=== PATIENT | female | born 1935 | race Caucasian/White ===

== ENCOUNTER 2016-06-25 18:38 | Emergency (ER) | payer OTHER, BC ==
--- NOTE | 2016-06-25 18:40 | PDOC ---
Attending Attestation - Resident Resident Name: Jasper,Jenny - ED Attending Attestation I have performed the following: I have examined & evaluated the patient, The case was reviewed & discussed with the resident, I agree w/resident's findings & plan, Exceptions are as noted - HPI HPI: 06/25/16 18:39 The patient is an 81-year-old female, who presents to the emergency department status mechanical fall with occipital head trauma and no loss of consciousness. She denies headache, nausea/vomiting, focal weakness/paresthesias. She has no neck pain. - Physicial Exam PE: 06/25/16 18:40 The patient is well-appearing and in no acute distress Occiptal scalp hematoma measuring 5x6cm Vitals noted C-spine is nontender - Medical Decision Making 06/25/16 18:[address] Case discussed in detail with oncoming Emergency Physician including history, physical exam and ancillary studies. Oncoming Emergency Physician has assumed care for the patient and will complete the evaluation and treatment. 06/25/16 18:42 Discharge Disposition - Diagnosis Closed head injury
--- NOTE | 2016-06-25 18:43 | PDOC ---
History of Present Illness - General Chief Complaint: Laceration Stated Complaint: fell,hit back of head Time Seen by Provider: 06/25/16 18:39 - History of Present Illness Initial Comments: 06/25/16 18:45 CHIEF COMPLAINT: Head trauma s/p mechanical fall PCP: Marianne Garza HISTORY OF PRESENT ILLNESS: 81 year old female presented to the ED after she hit her head s/p mechanical fall this evening. A/c to the patient, she was about to sit in the passenger seat, but unfortunately she buckled her right knee and fell backwards hitting her head on the ground. Denies any LOC, dizziness, vertigo, near syncope, blurring of vision nausea, vomiting, headache pre and post fall. She was able to call for help after she fell. Denies any chest pain, palpitations, fever, chills, urinary symptoms. Patient mentions she is not on any blood thinners and she got the tetanus shot less than 5 years ago. Recent Travel: None PAST MEDICAL HISTORY: Hypertension, Hyperlipidemia, Diverticulitis PAST SURGICAL HISTORY: Laparoscopic surgery for Diverticulitis yesterday 2016 Social History: Smoking: Denies Alcohol: Denies Drugs: Denies Family History: Unknown Allergies NKDA 06/25/16 19:24 Past History - Past Medical History Allergies/Adverse Reactions: Allergies Allergy/AdvReac Type Severity Reaction Status Date / Time No Known Allergies Allergy Verified 06/25/16 18:39 Home Medications: Ambulatory Orders Diltiazem Cd [Cardizem Cd -] 240 mg PO DAILY 01/17/16 Duloxetine HCl 60 mg PO DAILY 01/17/16 Folic Acid - 1 mg PO DAILY 01/17/16 Gabapentin 600 mg PO HS 01/17/16 Gabapentin [Neurontin] 400 mg PO DAILY 01/17/16 Hydrochlorothiazide [Hctz -] 25 mg PO DAILY 01/17/16 Metoprolol Tartrate 50 mg PO DAILY 01/17/16 Potassium Chloride 20 meq PO DAILY 01/17/16 Simvastatin [Zocor -] 20 mg PO HS 01/17/16 Diazepam [Valium] 5 mg PO Q8H 01/18/16 Paroxetine HCl 30 mg PO DAILY 01/18/16 HTN: Yes Hypercholesterolemia: Yes Psychiatric Problems: Yes (ANXIETY/DEPRESSION) - Psycho/Social/Smoking Cessation Hx Anxiety: No Suicidal Ideation: No Smoking History: Never smoked Have you smoked in the past 12 months: No Hx Alcohol Use: Yes (RARE) Drug/Substance Use Hx: No Substance Use Type: Alcohol Hx Substance Use Treatment: No Review of Systems - Review of Systems Able to Perform ROS?: Yes Comments:: 06/25/16 18:53 REVIEW OF SYSTEMS CONSTITUTIONAL: Absent: fever, chills, diaphoresis, generalized weakness, malaise, loss of appetite, weight change HEENT: Absent: rhinorrhea, nasal congestion, throat pain, throat swelling, difficulty swallowing, mouth swelling, ear pain, eye pain, visual changes CARDIOVASCULAR: Absent: chest pain, syncope, palpitations, irregular heart rate , lightheadedness, peripheral edema RESPIRATORY: Absent: cough, shortness of breath, dyspnea with exertion, orthopnea, wheezing, stridor, hemoptysis GASTROINTESTINAL: Nausea, vomiting, diarrhea that began last night around 7pm. Also complaining of LLQ pain. Absent: abdominal distension, constipation, melena , hematochezia GENITOURINARY: Absent: dysuria, frequency, urgency, hesitancy, hematuria, flank pain, genital pain MUSCULOSKELETAL: Absent: myalgia, arthralgia, joint swelling, back pain, neck pain SKIN: Absent: rash, itching, pallor HEMATOLOGIC/IMMUNOLOGIC: Absent: easy bleeding, easy bruising, lymphadenopathy, frequent infections ENDOCRINE:Absent: unexplained weight gain, unexplained weight loss, heat intolerance, cold intolerance NEUROLOGIC: Present: Head trauma, no headache or any other symptoms Absent: headache, focal weakness or paresthesias, dizziness, unsteady gait, seizure, mental status changes, bladder or bowel incontinence PSYCHIATRIC: Absent: anxiety, depression, suicidal or homicidal ideation, hallucinations. Is the patient limited Dominican proficient: No *Physical Exam - Physical Exam Comments: 06/25/16 18:55 GENERAL: Awake, alert, and fully oriented, in no acute distress. HEAD: Head trauma +, occipital hematoma approximately 5 x 6cm, no active bleeding, non tender, non fluctuant. EYES: Pupils equal, round and reactive to light, extraocular movements intact, sclera anicteric, conjunctiva clear. No lid lag. EARS, NOSE, THROAT: Ears normal, nares patent, oropharynx clear without exudates. Moist mucous membranes. NECK: Normal range of motion, supple without lymphadenopathy, or masses. LUNGS: Breath sounds equal, clear to auscultation bilaterally. No wheezes, and no crackles. No accessory muscle use. HEART: Regular rate and rhythm, normal S1 and S2 without murmur, rub or gallop. ABDOMEN: Soft, surgical scar phillips on the abdomen, no signs of infection in the scar not distended, normoactive bowel sounds, no masses. No hepatomegaly or splenomegaly. MUSCULOSKELETAL: Normal range of motion at all joints. No bony deformities or tenderness. No CVA tenderness. UPPER EXTREMITIES: 2+ pulses, warm, well-perfused. No cyanosis. No clubbing. Cap refill <2 seconds. No peripheral edema. LOWER EXTREMITIES: 2+ pulses, warm, well-perfused. No calf tenderness. No peripheral edema. NEUROLOGICAL: Cranial nerves II-XII intact. Normal speech. Gait not observed. PSYCHIATRIC: Cooperative. Good eye contact. Appropriate mood and affect. SKIN: Dry skin throughout with scratches on b/l lower extremities. ED Treatment Course - LABORATORY CBC & Chemistry Diagram: 06/25/16 19:05 06/25/16 19:05 Medical Decision Making - Medical Decision Making 06/25/16 18:45 Patient seen and examined at bedside. Vitals, unremarkable. Patient looks comfortable, but bit anxious about the head trauma, wants to be addressed immediately. Physical examination: Head trauma +, occipital hematoma approximately 5 x 6cm, no active bleeding, non tender, non fluctuant. Will order CBC, CMP, Coags, Lactic acid, magnesium, phosphorus, CXR, CT head, cardiac profile. 06/25/2016 18:20 Patient reassessed. Oriented to time, place and person. Spoke with patients customer care manager at bedside, she has early onset of dementia. She and her has been taking care of the patient 21/11 since 4 years. Will sign out to Dr. Bueno. Illness, Investigation and plan of care explained to the patient and the customer care manager sun. They verbalized understanding. Case seen and discussed with Dr. Bueno and Dr. Ro. *DC/Admit/Observation/Transfer Diagnosis at time of Disposition: Closed head injury
[2016-06-25 19:05] VITALS: TEMP 98.1; BMI 30.9
[2016-06-25 19:29] LABS: BASOPHIL 0.6 % (0-2.0); EOSINOPHIL 0.1 % (0-4.5); MCH 30.3 pg (25.7-33.7); MCHC 33.9 g/dl (32.0-36.0); MEAN CELL VOLUME 89.3 fl (80-96); MEAN PLT VOLUME 8.4 fl (7.5-11.1); NEUTROPHILS 78.9 % (42.8-82.8); PLATELET COUNT 332 K/MM3 (134-434); RDW 14.3 % (11.6-15.6); WHITE BLOOD COUNT 14.5 K/mm3 (4.0-10.0)
[2016-06-25 19:34] LABS: ACTIVATED PTT 23.1 SECONDS (24.0-38.9)
[2016-06-25 19:38] LABS: ALBUMIN 3.7 g/dl (3.5-5.0); ALK PHOS 53 U/L (32-92); ANION GAP 9 (8-16); CALCIUM 9.1 mg/dl (8.4-10.2); CO2 30 mmol/L (22-28); CPK(DFH) 76 IU/L (26-140); CREATININE 0.7 mg/dl (0.6-1.3); GLUCOSE,RANDOM 124 mg/dl (74-106); INR 1.03 (0.82-1.09); MAGNESIUM 1.8 mg/dL (1.8-2.4); PHOSPHOROUS 2.8 mg/dl (2.5-4.6); PROTHROMBIN TIME (PATIENT) 11.5 SEC (10.2-13.0); SGOT/AST 24 U/L (10-42); SGPT/ALT 43 U/L (10-40); TOT PROT 6.1 g/dl (6.4-8.3)
--- NOTE | 2016-06-25 19:40 | PDOC ---
*Physical Exam - Vital Signs Last Vital Signs Temp Pulse Resp BP Pulse Ox 98.1 F 98 H 20 128/64 98 06/25/16 18:39 06/25/16 18:39 06/25/16 18:39 06/25/16 18:39 06/25/16 18:39 <Chrissie West - Last Filed: 06/25/16 20:38> - Vital Signs Last Vital Signs Temp Pulse Resp BP Pulse Ox 98.1 F 98 H 20 128/64 98 06/25/16 18:39 06/25/16 18:39 06/25/16 18:39 06/25/16 18:39 06/25/16 18:39 <Loco Givens I - Last Filed: 06/25/16 20:54> Heart Score/ECG Review - ECG Intrepretation Comment:: 06/25/16 19:41 ECG obtained at 19:17 Sinus bradycardia at 58 bpm Incomplete left bundle branch block ECG unchanged from prior study on 01/19/2016 <Chrissie West - Last Filed: 06/25/16 20:38> ED Treatment Course - LABORATORY CBC & Chemistry Diagram: 06/25/16 19:05 06/25/16 19:05 - ADDITIONAL ORDERS Additional order review: Laboratory Results 06/25/16 06/25/16 06/25/16 19:05 19:05 19:05 INR Cancelled 1.03 PTT (Actin FS) 23.1 L Sodium Potassium Chloride Carbon Dioxide Anion Gap BUN Creatinine Creat Clearance w eGFR Random Glucose Calcium Phosphorus Magnesium AST ALT Alkaline Phosphatase Creatine Kinase 76 Total Protein Albumin 06/25/16 19:05 INR PTT (Actin FS) Sodium 138 Potassium 3.7 Chloride 99 Carbon Dioxide 30 H Anion Gap 9 BUN 17 D Creatinine 0.7 D Creat Clearance w eGFR > 60 Random Glucose 124 H D Calcium 9.1 Phosphorus 2.8 Magnesium 1.8 AST 24 D ALT 43 H Alkaline Phosphatase 53 D Creatine Kinase Total Protein 6.1 L Albumin 3.7 06/25/16 19:05 RBC 4.36 MCV 89.3 MCHC 33.9 RDW 14.3 MPV 8.4 Neutrophils % 78.9 D Lymphocytes % 12.4 D Monocytes % 8.0 Eosinophils % 0.1 D Basophils % 0.6 - RADIOLOGY Radiograph Interpretation: 06/25/16 20:39 EXAM: CT of the cervical spine without contrast Extensive degenerative changes. No acute osseous abnormality Read by: Efren Johnson MD EXAM: CT of the brain without contrast IMPRESSION: Findings of chronic parenchymal changes of the brain and a subcutaneous tunnel posteriorly on the right side Read by: Efren Johnson MD <Chrissie West - Last Filed: 06/25/16 20:38> - LABORATORY CBC & Chemistry Diagram: 06/25/16 19:05 06/25/16 19:05 - ADDITIONAL ORDERS Additional order review: Laboratory Results 06/25/16 06/25/16 19:05 19:05 INR Cancelled PTT (Actin FS) 23.1 L 06/25/16 19:05 RBC 4.36 MCV 89.3 MCHC 33.9 RDW 14.3 MPV 8.4 Neutrophils % 78.9 D Lymphocytes % 12.4 D Monocytes % 8.0 Eosinophils % 0.1 D Basophils % 0.6 - RADIOLOGY Radiology Studies Ordered: Category Date Time Status CERVICAL SPINE CT W/O CONTR [CT] Stat CT Scan 06/25/16 19:28 Ordered <Loco Givens I - Last Filed: 06/25/16 20:54> Progress Note - Progress Note Progress Note: This is a 81-year-old female who was initially evaluated by the internal medicine resident being supervised by Dr. Ro. Care of this patient was transferred to hi at 7 PM. Patient has a workup pending for altered mental status. As per patient's caregiver she is early onset dementia but her behavior this evening was not her baseline. So she is undergoing a workup for fall and there is a questionable history of whether or not she is at her baseline mental status-petersen.. Patient has CAT scan pending as well as lab work. 20:45 CT scan Business Office Associate: ([email or web address]) Begin of Report Content Referring Physician: Loco Givens Patient Name: Hailey Johnson THIS IS A PRELIMINARYREPORT FROM IMAGING COMMUNICATIONS SCIENT[facility] DATE OF SERVICE: 2016-06-25 19:28:59.0 IMAGES: [id number] EXAM: CT of the cervical spine without contrast HISTORY:Trauma... COMPARISON: None. FINDINGS:Serial transaxial images of the cervical spine are available without subarachnoid contrast agent. Sagittal and coronal reformatted imaging is also available. There is focal reversal of normal curvature centered at C4-C5. Otherwise alignment is within normal limits except for 1 mm anterior subluxation of C3 upon C4 that is most likely degenerative in nature. There are degenerative changes at the C1-C2 articulation. No acute osseous abnormality is seen however there are arthritic changes of the facet joints at multiple levels. Evaluation for disc herniation or significant disc bulge is limited without subarachnoid contrast agent. The paraspinal soft tissues are grossly unremarkable. There is disc space narrowing at C4-C5 and C5-C6 and C6- C7 with spondylosis anteriorly and posteriorly at these levels IMPRESSION: Extensive degenerative changes. No acute osseous abnormality THIS DOCUMENT HAS BEEN ELECTRONICALLY SIGNED Efren Johnson MD 06/25/2016 20:24 EST Marie. Please call Imaging Senior Trial Attorney [phone] with questions. Referring Physician: Loco iGvens Patient Name: Hailey Johnson THIS IS A PRELIMINARYREPORT FROM [facility]UNICATIONS [facility]ENT[facility] Referring Physician: Chencho Ro Patient Name: Hailey Johnson THIS IS A PRELIMINARYREPORT FROM [facility] COMMUNICATION[facility] SCIENT[facility] DATE OF SERVICE: 2016-06-25 19:31:18.0 IMAGES: 77 EXAM: CT of the brain without contrast HISTORY:Trauma COMPARISON: None. FINDINGS:Serial transaxial images of the brain are available without intravenous contrast agent demonstrating mild generalized cortical atrophy. There is associated mild ventricular prominence. There is no midline shift or mass- effect or acute hemorrhage. No abnormal fluid collections are seen. There is a subcutaneous soft tissue hematoma overlying the calvarium posteriorly on the right side measuring approximately 3.8 cm x 1.0 cm. The mastoid air cells are well aerated and the calvarium appears intact. IMPRESSION: Findings of chronic parenchymal changes of the brain and a subcutaneous tunnel posteriorly on the right side THIS DOCUMENT HAS BEEN ELECTRONICALLY SIGNED Efren Johnson MD 06/25/2016 20:22 EST Marie. Please call Imaging Senior Trial Attorney [phone] with questions. End of Report Content Assessment and plan: Patient's workup reveals a hematoma on her head where she fell and hit her head. The CAT scan of her head shows a soft tissue hematoma otherwise no acute parenchymal changes. The CAT scan of her cervical spine shows degenerative changes no acute pathology. She does have a mildly elevated white count but no left shift which is most likely secondary to her being one day postop. Patient does have dementia and is in the early stages of it. In discussion with her caregiver patient does appear to be at her baseline mental status. Given the fact that she was recently hospitalized and had surgery it is not surprising that she may have some mild increase in confusion. In discussion with patient she was oriented 3 here in the emergency room. Patient will be discharged home with her caregiver. <Loco Givens I - Last Filed: 06/25/16 20:54> *DC/Admit/Observation/Transfer - Attestations Scribe Attestion: 06/25/16 19:42 Documentation prepared by Chrissie West, acting as medical doctor nuclear medicine for Loco Givens MD. <Chrissie West - Last Filed: 06/25/16 20:38> <Loco Givens I - Last Filed: 06/25/16 20:54> Diagnosis at time of Disposition: Closed head injury - Discharge Dispostion Disposition: HOME - Patient Instructions Printed Discharge Instructions: DI for Closed Head Injury Additional Instructions: Someone should check on you once tonight during the night. You should be arousable to your Normal level of arousability for that time of the night. If you have been vomiting, have had a seizure, or you are unable to be aroused or the person checking on you is concerned that there has been a change in your mental status they should call 911 and have you brought back to the emergency department. You can take Tylenol as needed for pain. Return to the emergency department immediately with ANY new, persistent or worsening symptoms. Continue any medications as previously prescribed by your physician. You should follow up with your primary doctor as soon as possible regarding today's emergency department visit. . Please make sure your doctor reviews the results of your emergency evaluation. Thank you for coming to the Emergency Department today for your care. It was a pleasure to see you today. Please note that your evaluation is INCOMPLETE until you follow-up with your doctor.
[2016-06-25 19:47] LABS: BILIRUBIN,TOTAL 0.3 mg/dl (0.2-1.0)
[2016-06-25 19:48] LABS: TROPONIN I (DFP) < 0.03 ng/ml (0.03-0.50)
[2016-06-25 19:56] VITALS: PULSE 64
[2016-06-25 20:19] VITALS: BP 142/85
--- NOTE | 2016-06-26 18:16 | EKG ---
Test Reason : Blood Pressure : / mmHG Vent. Rate : 058 BPM Atrial Rate : 058 BPM P-R Int : 188 ms QRS Dur : 114 ms QT Int : 476 ms P-R-T Axes : 072 -19 051 degrees QTc Int : 467 ms SINUS BRADYCARDIA INCOMPLETE LEFT BUNDLE BRANCH BLOCK BORDERLINE ECG NO PREVIOUS ECGS AVAILABLE Confirmed by DEIRDRE ELAM MD ([id number]) on 06/26/2016 6:16:29 PM Referred By: CHRISTIAN Confirmed By:DEIRDRE ELAM MD
== END 2016-06-25 21:02 | disposition home or self-care (01) ==
LOC: FER 18:38
DX: S09.90XA Unspecified injury of head, initial encounter (principal); W18.39XA Other fall on same level, initial encounter; Y93.89 Activity, other specified; Y92.89 Other specified places as the place of occurrence of the external cause; I10 Essential (primary) hypertension; E78.5 Hyperlipidemia, unspecified; K57.90 Diverticulosis of intestine, part unspecified, without perforation or abscess without bleeding; Z98.890 Other specified postprocedural states; F41.8 Other specified anxiety disorders
CPT/HCPCS: 36415; 70450-TC; 71010-TC; 72125-TC; 80053; 82550; 83605; 83735; 84100; 84484; 85025; 85610; 85730; 93005; 99285-25

== ENCOUNTER 2016-07-09 17:23 | Emergency (ER) | payer OTHER, BC ==
--- NOTE | 2016-07-09 17:27 | PDOC ---
History of Present Illness - General History Source: Patient Exam Limitations: No Limitations - History of Present Illness Initial Comments: 07/09/16 17:59 The patient is a 81 year old female, with a significant past medical history of hypertension, hyperlipidemia, diverticulitis, and dementia who presents to the emergency department with complaints of right ankle pain. The patient is a poor historian, but does state that on June 24, 2016 when she was leaving [facility] as she was getting into her car she slipped and fell on wet gravel. On June 25, 2016 she presented to the emergency department and had a negative CT scan. Since this visit to the ED she reports that she has had severe and constant 10/10 ankle pain which she describes as excruciating, with associated difficulty walking. The patient states that she came into the emergency department today because she is concerned about her right ankle pain and tenderness. She denies chest pain, shortness of breath, headache and dizziness. She denies fever, chills, nausea, vomit, diarrhea and constipation. She denies dysuria, frequency, urgency and hematuria. Allergies: None Past surgical history: Laparoscopic surgery for diverticulitis on 06/24/16 Social history: Denies alcohol or drug use PCP: Julia Lott <Christine Flores - Last Filed: 07/09/16 19:44> - General History Source: Patient Exam Limitations: No Limitations <Corrina Dueñas - Last Filed: 07/12/16 12:14> - General Chief Complaint: Pain, Acute Stated Complaint: RIGHT ANKLE PAIN Time Seen by Provider: 07/09/16 17:25 Past History <Christine Flores - Last Filed: 07/09/16 19:44> - Past Medical History HTN: Yes Hypercholesterolemia: Yes Psychiatric Problems: Yes (ANXIETY/DEPRESSION) - Surgical History Abdominal Surgery: Yes (unknown) - Immunization History Immunization Up to Date: Yes - Psycho/Social/Smoking Cessation Hx Anxiety: No Suicidal Ideation: No Smoking History: Never smoked Have you smoked in the past 12 months: No Hx Alcohol Use: Yes (RARE) Drug/Substance Use Hx: No Substance Use Type: Alcohol Hx Substance Use Treatment: No <Corrina Dueñas - Last Filed: 07/12/16 12:14> - Past Medical History Allergies/Adverse Reactions: Allergies Allergy/AdvReac Type Severity Reaction Status Date / Time No Known Allergies Allergy Verified 06/25/16 18:39 Home Medications: Ambulatory Orders Diltiazem Cd [Cardizem Cd -] 240 mg PO DAILY 01/17/16 Duloxetine HCl 60 mg PO DAILY 01/17/16 Folic Acid - 1 mg PO DAILY 01/17/16 Gabapentin 600 mg PO HS 01/17/16 Gabapentin [Neurontin] 400 mg PO DAILY 01/17/16 Hydrochlorothiazide [Hctz -] 25 mg PO DAILY 01/17/16 Metoprolol Tartrate 50 mg PO DAILY 01/17/16 Potassium Chloride 20 meq PO DAILY 01/17/16 Simvastatin [Zocor -] 20 mg PO HS 01/17/16 Diazepam [Valium] 5 mg PO Q8H 01/18/16 Paroxetine HCl 30 mg PO DAILY 01/18/16 Acetaminophen W/ Codeine #3 [Tylenol # 3 -] 1 tab PO TID PRN #15 tablet MDD 3 Review of Systems - Review of Systems Able to Perform ROS?: Yes Comments:: 07/09/16 17:59 CONSTITUTIONAL: +difficulty ambulating Absent: fever, no chills, no fatigue MUSKULOSKELETAL: +right ankle pain and tenderness Absent: back pain SKIN: Absent: rash NEURO: Absent: headache <Christine Flores - Last Filed: 07/09/16 19:44> *Physical Exam - Vital Signs Last Vital Signs Temp Pulse Resp BP Pulse Ox 97.5 F L 72 15 167/92 98 07/09/16 17:24 07/09/16 17:24 07/09/16 17:24 07/09/16 17:24 07/09/16 17:24 - Physical Exam Comments: 07/09/16 18:00 GENERAL: The patient is in no acute distress. HEAD: Normal with no signs of trauma. EXTREMITIES:No clubbing or cyanosis. No erythema. NEUROLOGICAL: Cranial nerves II through XII grossly intact. Normal speech. No focal neurological deficits. MUSCULOSKELETAL: +Right lateral malleolar tenderness to palpation,minimal swelling. No bruising. No medial malleolar tenderness. No midfoot tenderness. Dorsalis Pedis 2+. Sensation and motor intact. No proximal fibular tenderness. Back non-tender to palpation, no CVA tenderness SKIN: Warm, Dry, normal turgor, no rashes or lesions noted. <Craft,Christine - Last Filed: 07/09/16 19:44> ED Treatment Course - RADIOLOGY Radiograph Interpretation: 07/09/16 18:78 RAD/ ANKLE and FOOT-RIGHT Reported by: Dr. Chencho Bullock Reviewed by: Dr. Corrina Dueñas Impression: Minimal lateral malleolar swelling. No acute fracture. Minimal degenerative changes. If symptoms persist or there is decreased range of motion then further imaging and orthopedic consultation may be of help. <Christine Flores - Last Filed: 07/09/16 19:44> Medical Decision Making - Medical Decision Making 07/09/16 17:26 A portion of this note was documented by scribe services under my direction. I have reviewed the details of the note, within reason, and agree with the documentation with the following case summary and management plan written by me. Nursing documentation reviewed and incorporated into medical decision making 07/09/16 17:36 This is an 81-year-old female with a history of hypertension, hyperlipidemia, dementia who presents emergency department with a complaint of right ankle pain. Patient is a poor historian but was finally able to tell me that on June 24 she left [facility], tried to get into her car and slipped on wet gravel. She came to the emergency department on June 25 for she was assessed with a head CT which was negative. Patient states since that ER visit she has noted right ankle pain. She's had difficulty ambulating as a result. In the interim she has been seen by Dr. Corrigan for an injection into her spine for her sciatica. She has not followed up with her primary care physician since her fall. Patient returns to the emergency department with a complaint of right lateral malleolar pain and tenderness, and associated difficulty with ambulation. She denies any new falls or injuries. On examination right lateral malleolus is tender to palpation, minimal swelling. No tenderness of the anterior or posterior calcanofibular ligaments Will do x ray Reviewed pt iSTOPP (see below) Will prescribe Tylenol #3 Follow up with PMD in 2 days Others' Prescriptions Patient Name: Hailey Johnson Date: 1935 Address: [address] [place] [address] Sex: Female Rx Written Rx Dispensed Drug Quantity Days Supply Prescriber Name 06/27/2016 06/27/2016 diazepam 5 mg tablet 60 15 Dino Patterson MD 06/13/2016 06/13/2016 diazepam 5 mg tablet 60 15 Dino Patterson MD 05/30/2016 05/31/2016 diazepam 5 mg tablet 60 30 Dino Patterson MD 05/23/2016 05/23/2016 diazepam 5 mg tablet 30 10 Dino Patterson MD 05/05/2016 05/05/2016 diazepam 5 mg tablet 30 10 Dino Patterson MD 02/25/2016 03/11/2016 diazepam 5 mg tablet 90 30 Dino Patterson MD 02/08/2016 02/09/2016 diazepam 5 mg tablet 90 30 Lott, Imaan 12/01/2015 12/05/2015 diazepam 5 mg tablet 90 30 Lott, Imaan 10/12/2015 10/12/2015 diazepam 5 mg tablet 90 30 Lott, Imaan 08/20/2015 08/20/2015 diazepam 5 mg tablet 90 30 Lott, Imaan 07/09/16 18:06 Xray demonstrates no fracture Will discharge to home with air cast Follow up as we discussed Clinical impression: Ankle injury 07/09/16 18:15 <Corrina Dueñas - Last Filed: 07/12/16 12:14> *DC/Admit/Observation/Transfer - Attestations Scribe Attestion: 07/09/16 18:00 Documentation prepared by MIKAYLA Dickson, acting as medical staff assistant for Corrina Dueñas MD. <Christine Flores - Last Filed: 07/09/16 19:44> - Discharge Dispostion Admit: No <Corrina Dueñas - Last Filed: 07/12/16 12:14> Diagnosis at time of Disposition: Right ankle injury Qualifiers: Encounter type: subsequent encounter Qualified Code(s): S99.911D - Unspecified injury of right ankle, subsequent encounter - Discharge Dispostion Disposition: HOME Condition at time of disposition: Good - Prescriptions Prescriptions: Acetaminophen W/ Codeine #3 [Tylenol # 3 -] 1 tab PO TID PRN #15 tablet MDD 3 PRN Reason: Pain - Referrals Referrals: Julia Lott MD [Primary Care Provider] - Nick Wilson MD [Staff Physician] - - Patient Instructions Printed Discharge Instructions: DI for Ankle Sprain, DI for Ankle Pain Additional Instructions: Hailey Thank you for coming in to the ER today Please try taking tylenol #3 for your pain Please wear air cast or angie bandage as needed for pain Please do not take Tylenol With codeine along with Valium as this can make you very sleepy Elevate leg and walk with a cane as needed Return to the ER for any other concerns or complaints Please follow up with Dr Lott within 2 -3 days Please also follow up with Dr. Orozco Please take colace and drink 6-8 glasses of water to prevent constipation
[2016-07-09 17:40] VITALS: BP 167/92; PULSE 72; TEMP 97.5; BMI 31.8
== END 2016-07-09 18:17 | disposition home or self-care (01) ==
LOC: FER 17:23
DX: M25.571 Pain in right ankle and joints of right foot (principal); I10 Essential (primary) hypertension; E78.00 Pure hypercholesterolemia, unspecified; F41.8 Other specified anxiety disorders; I48.0 Paroxysmal atrial fibrillation
CPT/HCPCS: 73610-TC-RT; 73630-TC-RT; 99282-25

== ENCOUNTER 2017-05-01 16:29 | Emergency (ER) | payer OTHER, BC ==
--- NOTE | 2017-05-01 16:46 | PDOC ---
History of Present Illness - History of Present Illness Initial Comments: 05/01/17 17:21 The patient is a 81 year old female, with a significant past medical history of hypertension, hyperlipidemia, diverticulitis, anxiety, and dementia who presents to the emergency department with complaints of intermittent diarrhea and abdominal pain for 3 days. Patient states that she has been experiencing abdominal pain and tenderness as well as diarrhea on and off for 3 days. She states she hasnt been eating much lately. Today she states she had some banana soup, chobani yogurt, cookies, and tea with honey. She states she took pepto bismol today to help relieve the abdominal pain. She recently began some new anxiety medication which she takes at night. She notices that her anxiety occurs in the day but at night it goes away. She notices shes diaphoretic at night when she sleeps and notes that she currently feel diaphoretic. She also notices recent nasal congestion, ear ringing, throat tightness, increased thirst , gas, and frequency. Patient ambulates with a walker. She denies h/o ulcers or liver issues. PCP: Julia Lott Past surgical history: gallbladder removal. She denies recent fevers, chills, headache or dizziness. She denies recent nausea, vomit,or constipation. She denies recent dysuria, or hematuria. She denies recent chest pain or shortness of breath. <Devorah Brooks - Last Filed: 05/01/17 17:32> - History of Present Illness Initial Comments: Physical exam: Alert cheerful and cooperative no acute distress Afebrile, vital signs normal except for initially elevated blood pressure, which came down to normal with rest PERRLA, fundi benign, ENT clear Neck supple without bruit mass or nodes Lungs clear with full breath sounds throughout bilaterally CV S1 and S2 normal without murmur or gallop pulses full and symmetric no JVD or edema no bruits Abdomen nondistended. Soft without masses tenderness organomegaly. No CVAT. Bowel sounds normal Neurological intact Extremities no CCE Skin clear, no rash, adequate turgor and wet mucous membranes Impression: The patient's symptoms are possibly due to anxiety, which has been worse lately. She is taking Klonopin with partial relief. There've been no other symptoms associated with abdominal disease in the patient is eating normally. Other possibilities include GI side effects from mirtazapine or Klonopin Plan: Recommended Nexium. Relaxation techniques for anxiety. Consider discussing with psychiatrist temporary hold on mirtazapine and/or Klonopin if symptoms persist. Consultation with testing machine operator. If symptoms worsen or other symptoms such as fever nausea vomiting or increased pain develop, return to ER. Otherwise follow-up with primary physician and testing machine operator, as well as psychiatrist. <Guevara Núñez - Last Filed: 05/03/17 07:23> - General Chief Complaint: Nausea Stated Complaint: UPSET STOMACH Time Seen by Provider: 05/01/17 16:36 Past History <Devorah Brooks - Last Filed: 05/01/17 17:32> - Past Medical History Cardiac Disorders: Yes (PAF) GI Disorders: Yes HTN: Yes Hypercholesterolemia: Yes Psychiatric Problems: Yes (ANXIETY/DEPRESSION) - Surgical History Abdominal Surgery: Yes (unknown) - Immunization History Immunization Up to Date: Yes - Suicide/Smoking/Psychosocial Hx Smoking History: Never smoked Have you smoked in the past 12 months: No Hx Alcohol Use: Yes (RARE) Drug/Substance Use Hx: No Substance Use Type: Alcohol Hx Substance Use Treatment: No <Guevara Núñez - Last Filed: 05/03/17 07:23> - Past Medical History Allergies/Adverse Reactions: Allergies Allergy/AdvReac Type Severity Reaction Status Date / Time No Known Allergies Allergy Verified 05/01/17 16:44 Home Medications: Ambulatory Orders Diltiazem Cd [Cardizem Cd -] 240 mg PO DAILY 01/17/16 Duloxetine HCl 60 mg PO DAILY 01/17/16 Folic Acid - 1 mg PO DAILY 01/17/16 Gabapentin 600 mg PO HS 01/17/16 Gabapentin [Neurontin] 400 mg PO DAILY 01/17/16 Hydrochlorothiazide [Hctz -] 25 mg PO DAILY 01/17/16 Metoprolol Tartrate 50 mg PO DAILY 01/17/16 Potassium Chloride 20 meq PO DAILY 01/17/16 Simvastatin [Zocor -] 20 mg PO HS 01/17/16 Bismuth Subsalicylate [Pepto-Bismol -] 30 ml PO ONCE 05/01/17 Clonazepam [Klonopin -] 0.5 mg PO BID 05/01/17 Clonazepam [Klonopin] 0.5 mg PO TID PRN #15 tablet MDD 3 05/01/17 Review of Systems - Review of Systems Comments:: 05/01/17 17:22 CONSTITUTIONAL: Present: diaphoresis, Absent: fever, chills, generalized weakness, malaise, loss of appetite HEENT: Present: nasal congestion, throat tightness, tinnitus Absent: rhinorrhea, difficulty swallowing, mouth swelling, ear pain, eye pain, visual changes CARDIOVASCULAR: Absent: chest pain, syncope, palpitations, irregular heart rate, lightheadedness , peripheral edema RESPIRATORY: Absent: cough, shortness of breath, dyspnea with exertion, orthopnea, wheezing, stridor, hemoptysis GASTROINTESTINAL: Present: abdominal pain, diarrhea, gas Absent: abdominal distension, nausea, vomiting, constipation, melena, hematochezia GENITOURINARY: Present: frequency, urgency Absent: dysuria, hesitancy, hematuria, flank pain, genital pain MUSCULOSKELETAL: Absent: myalgia, arthralgia, joint swelling SKIN: Absent: rash, itching, pallor HEMATOLOGIC/IMMUNOLOGIC: Absent: easy bleeding, easy bruising, lymphadenopathy, frequent infections ENDOCRINE: Present: increased thirst Absent: unexplained weight gain, unexplained weight loss, heat intolerance, cold intolerance NEUROLOGIC: Absent: headache, focal weakness or paresthesias, dizziness, unsteady gait, seizure, mental status changes, bladder or bowel incontinence <Devorah Brooks - Last Filed: 05/01/17 17:32> *Physical Exam - Vital Signs Last Vital Signs Temp Pulse Resp BP Pulse Ox 97.8 F 78 16 186/108 100 05/01/17 16:31 05/01/17 16:31 05/01/17 16:31 05/01/17 16:31 05/01/17 16:31 <Devorah Brooks - Last Filed: 05/01/17 17:32> *DC/Admit/Observation/Transfer - Attestations Scribe Attestion: 05/01/17 17:34 Documentation prepared by Devorah Brooks, acting as medical technologist clinical for Guevara Toussaint MD. <Devorah Brooks - Last Filed: 05/01/17 17:32> - Discharge Dispostion Admit: No <Guevara Núñez - Last Filed: 05/03/17 07:23> Diagnosis at time of Disposition: Dyspepsia, Anxiety - Discharge Dispostion Disposition: HOME Condition at time of disposition: Stable - Prescriptions Prescriptions: Clonazepam [Klonopin] 0.5 mg PO TID PRN #15 tablet MDD 3 PRN Reason: Anxiety - Referrals Referrals: Julia Lott MD [Primary Care Provider] - 3 days - Patient Instructions Printed Discharge Instructions: DI for Anxiety -- Adult, DI for Dyspepsia - Post Discharge Activity
[2017-05-01 16:59] VITALS: PULSE 78; TEMP 97.8; BMI 31.8
[2017-05-01] MEDS ORDERED: clonazePAM 0.5 MG TABLET PO ONE (17:05)
[2017-05-01] MEDS ORDERED: FAMOTIDINE 20 MG TABLET PO ONE (17:05)
[2017-05-01] MEDS ORDERED: clonazePAM 0.5 MG TABLET ONE (17:18)
[2017-05-01] MEDS ORDERED: FAMOTIDINE 20 MG TABLET ONE (17:18)
[2017-05-01 17:24] LABS: PH,URINE 6.5 (4.5-8); URINE APPEARANCE Clear; URINE BILIRUBIN Negative (NEGATIVE); URINE BLOOD Trace-intact (NEGATIVE); URINE COLOR YELLOW; URINE GLUCOSE (UA) Negative (NEGATIVE); URINE KETONE Negative (NEGATIVE); URINE NITRITE Negative (NEGATIVE); URINE PROTEIN Trace (NEGATIVE); URINE UROBILINOGEN 0.2 (0.2-1.0)
[2017-05-01 18:04] LABS: URINE MUCUS 1+
[2017-05-01 18:08] VITALS: BP 154/89
== END 2017-05-01 18:15 | disposition home or self-care (01) ==
LOC: FER 16:29
DX: R10.13 Epigastric pain (principal); F41.9 Anxiety disorder, unspecified; I10 Essential (primary) hypertension; E78.5 Hyperlipidemia, unspecified; F03.90 Unspecified dementia, unspecified severity, without behavioral disturbance, psychotic disturbance, mood disturbance, and anxiety
CPT/HCPCS: 81003; 81015; 87086; 99282-25

== ENCOUNTER 2021-02-05 13:18 | Inpatient (IN) | payer OTHER, BC ==
[2021-02-05] MEDS ORDERED: dilTIAZem HCL 50 MG/10 ML - 10 ML VIAL ONE (14:07)
[2021-02-05] MEDS ORDERED: dilTIAZem HCL 50 MG/10 ML - 10 ML VIAL IVPUSH ONE ×2 (14:16→15:39)
[2021-02-05] MEDS ORDERED: dilTIAZem HCL 60 MG TABLET PO ONE ×2 (14:35→23:39)
[2021-02-05 14:55] LABS: BASO % 1.3 % (0-2.0); EOS % 0.1 % (0-4.5); HEMATOCRIT 45.5 % (32.4-45.2); MCH 28.3 pg (25.7-33.7); MCHC 32.9 g/dl (32.0-36.0); MEAN CELL VOLUME 86.1 fl (80-96); MONO % 10.7 % (3.8-10.2); NEUT % 70.9 % (42.8-82.8); PLATELET COUNT 346 10^3/uL (134-434); RBC 5.28 M/mm3 (3.60-5.2); RDW 14.5 % (11.6-15.6); WHITE BLOOD COUNT 12.8 K/mm3 (4.0-10.8)
[2021-02-05 15:04] LABS: ALBUMIN 3.9 g/dl (3.4-5.0); CREATININE 1.3 mg/dl (0.55-1.3); TOT PROT 6.3 g/dl (6.4-8.2)
[2021-02-05] MEDS ORDERED: ASPIRIN 81 MG CHEWABLE TABLETS PO ONE (15:13)
[2021-02-05] MEDS ORDERED: ASPIRIN 81 MG CHEWABLE TABLETS ONE (15:24)
[2021-02-05] MEDS ORDERED: SODIUM CHLORIDE 0.9% 1000 ML INFUS.BAG IV ONE (15:32)
[2021-02-05] MEDS ORDERED: dilTIAZem HCL 125 MG/25 ML - 25 ML VIAL ONE (15:46)
[2021-02-05 17:39] LABS: N-TERMINAL BNP 4423.3 pg/ml (5-450)
[2021-02-05] MEDS ORDERED: ACETAMINOPHEN 325 MG TABLET (FP) PO ONE (21:06)
[2021-02-05] MEDS ORDERED: ACETAMINOPHEN 325 MG TABLET (FP) ONE (21:18)
[2021-02-05] MEDS ORDERED: dilTIAZem HCL 30 MG TABLET ONE (23:42)
[2021-02-06] MEDS ORDERED: HEPARIN NA (PORCINE) 5,000 UNITS/ML 1ML VIAL IVPUSH PRN ×3 (01:38→01:56)
[2021-02-06 02:38] LABS: INR 1.06 (0.83-1.09); PROTHROMBIN TIME (PATIENT) 12.8 SEC (9.7-13.0)
[2021-02-06 02:41] LABS: ACTIVATED PTT 27.1 SECONDS (25.2-36.5)
[2021-02-06 02:51] LABS: LDL CHOLESTEROL (ONLY SJRH) 87 mg/dL (5-100); TRIGLYCERIDES 86 mg/dL (0-150)
[2021-02-06 02:53] LABS: HDL CHOLESTEROL 54 mg/dL (40-60)
[2021-02-06 02:55] LABS: N-TERMINAL BNP 5406.7 pg/ml (5-450)
[2021-02-06] MEDS ORDERED: POTASSIUM CHLORIDE TABS 20 MEQ TABLET.ER (FP) PO ONE (03:02)
[2021-02-06 03:25] LABS: CHOLESTEROL 161 mg/dL (50-200); PHOSPHOROUS 3.3 mg/dL (2.5-4.9)
[2021-02-06] MEDS: HEPARIN SOD,PORK IN 0.45% NACL 25,000 UNITS/500 ML INFUS.BAG IVPB SCH (03:57)
[2021-02-06 04:49] VITALS: BMI 31.3
[2021-02-06] MEDS: FUROSEMIDE 20 MG TABLET (FP) PO SCH (09:40)
[2021-02-06] MEDS: ASPIRIN 81 MG CHEWABLE TABLETS PO SCH (09:40)
[2021-02-06] MEDS: GABAPENTIN 400 MG CAPSULE PO SCH (09:40)
[2021-02-06] MEDS: POTASSIUM CHLORIDE TABS 10 MEQ TABLET.ER (FP) PO SCH (09:41)
[2021-02-06] MEDS: DULoxetine HCL 30 MG CAPSULE.DR PO SCH (09:41)
[2021-02-06] MEDS ORDERED: FLU VACC QS2021-22(6MOS UP)/PF 60 MCG/0.5 ML SYRINGE IM ONE (10:00)
[2021-02-06] MEDS: ATORVASTATIN CA 40 MG TABLET (FP) PO SCH (21:20)
[2021-02-06] MEDS: clonazePAM 0.5 MG TABLET PO SCH (21:20)
[2021-02-06] MEDS ORDERED: ATORVASTATIN CA 10 MG TABLET (FP) PO SCH (22:00)
[2021-02-07] MEDS: HEPARIN SOD,PORK IN 0.45% NACL 25,000 UNITS/500 ML INFUS.BAG IVPB SCH (06:38)
[2021-02-07 07:25] LABS: INR 1.01 (0.83-1.09); PROTHROMBIN TIME (PATIENT) 12.2 SEC (9.7-13.0)
[2021-02-07 07:28] LABS: ACTIVATED PTT 74.7 SECONDS (25.2-36.5)
[2021-02-07 07:37] LABS: BASO % 0.4 % (0-2.0); EOS % 1.7 % (0-4.5); HEMATOCRIT 35.8 % (32.4-45.2); HEMOGLOBIN 11.9 GM/dL (10.7-15.3); LYMPH % 37.2 % (8-40); MCH 28.4 pg (25.7-33.7); MCHC 33.2 g/dl (32.0-36.0); MEAN CELL VOLUME 85.4 fl (80-96); MEAN PLT VOLUME 8.6 fl (7.5-11.1); MONO % 11.3 % (3.8-10.2); NEUT % 49.4 % (42.8-82.8); PLATELET COUNT 250 10^3/uL (134-434); RBC 4.19 M/mm3 (3.60-5.2); RDW 15.3 % (11.6-15.6); WHITE BLOOD COUNT 8.7 K/mm3 (4.0-10.0)
[2021-02-07 09:07] LABS: BILIRUBIN,TOTAL 0.4 mg/dL (0.2-1); BLOOD UREA NITROGEN 19.6 mg/dL (7-18); CALCIUM 8.3 mg/dL (8.5-10.1); CREATININE 0.8 mg/dL (0.55-1.3); MAGNESIUM 2.3 mg/dL (1.8-2.4); PHOSPHOROUS 3.2 mg/dL (2.5-4.9); TOT PROT 5.8 g/dl (6.4-8.2)
[2021-02-07] MEDS: DULoxetine HCL 30 MG CAPSULE.DR PO SCH (10:50)
[2021-02-07] MEDS: FUROSEMIDE 20 MG TABLET (FP) PO SCH (10:51)
[2021-02-07] MEDS: GABAPENTIN 400 MG CAPSULE PO SCH (10:51)
[2021-02-07] MEDS: ASPIRIN 81 MG CHEWABLE TABLETS PO SCH (10:51)
[2021-02-07] MEDS: POTASSIUM CHLORIDE TABS 10 MEQ TABLET.ER (FP) PO SCH (10:51)
[2021-02-07] MEDS ORDERED: POTASSIUM CHLORIDE ORAL LIQUID 20 MEQ/15 ML PO ONE (15:06)
[2021-02-07] MEDS: clonazePAM 0.5 MG TABLET PO SCH (21:56)
[2021-02-07] MEDS: ATORVASTATIN CA 40 MG TABLET (FP) PO SCH (21:56)
[2021-02-08 08:07] LABS: CALCIUM 8.4 mg/dL (8.5-10.1)
[2021-02-08 08:08] LABS: BLOOD UREA NITROGEN 13.7 mg/dL (7-18)
[2021-02-08 08:11] LABS: CREATININE 0.8 mg/dL (0.55-1.3); PHOSPHOROUS 3.1 mg/dL (2.5-4.9)
[2021-02-08] MEDS: HEPARIN SOD,PORK IN 0.45% NACL 25,000 UNITS/500 ML INFUS.BAG IVPB SCH (10:00)
[2021-02-08] MEDS: DULoxetine HCL 30 MG CAPSULE.DR PO SCH (10:06)
[2021-02-08] MEDS: ASPIRIN 81 MG CHEWABLE TABLETS PO SCH (10:07)
[2021-02-08] MEDS: FUROSEMIDE 20 MG TABLET (FP) PO SCH (10:07)
[2021-02-08] MEDS: POTASSIUM CHLORIDE TABS 10 MEQ TABLET.ER (FP) PO SCH (10:07)
[2021-02-08] MEDS: GABAPENTIN 400 MG CAPSULE PO SCH (10:07)
[2021-02-08] MEDS ORDERED: REGADENOSON 0.4 MG/5 ML PRE-FILLED SYRINGE IVPUSH ONE ×2 (14:06→14:30)
[2021-02-08 16:03] VITALS: BP 150/70; PULSE 59; TEMP 98.2
== END 2021-02-08 19:33 | disposition home or self-care (01) | DRG 309 ==
LOC: FER 13:18 → JERBED 02-06 01:10 → J4W 02-06 01:24
PROVIDERS: ADMIT Internal Medicine; ATTEND Internal Medicine
PROC: 5A2204Z Restoration of Cardiac Rhythm, Single (ICD-10-PCS; principal; 2021-02-06)
DX: I48.92 Unspecified atrial flutter (principal); I24.8 Other forms of acute ischemic heart disease; I48.0 Paroxysmal atrial fibrillation; Z79.01 Long term (current) use of anticoagulants; I10 Essential (primary) hypertension; E03.9 Hypothyroidism, unspecified; E78.5 Hyperlipidemia, unspecified; I44.7 Left bundle-branch block, unspecified; D72.829 Elevated white blood cell count, unspecified
CPT/HCPCS: 36415; 71045-TC-FY; 78452-TC; 80048; 80053; 80061; 81003; 81015; 82550; 82553; 83735; 83880; 84100; 84439; 84443; 84484; 85025; 85610; 85730; 87086; 90686; 93005; 93010; 93017; 93306-TC; 99285-25; A9502; C9803; G0008; J2785; U0003; U0005